=== PATIENT | male | born 1995 | race Caucasian/White ===

== ENCOUNTER 2023-05-06 20:23 | Emergency (ER) | payer BC ==
[2023-05-07] MEDS ORDERED: Doxycycline 100 MG Cap PO ONE (00:18)
[2023-05-07] MEDS ORDERED: Cephalexin 500 MG Cap PO ONE (00:18)
== END 2023-05-07 00:42 | disposition home or self-care (01) ==
LOC: MW.ED 20:23
DX: S70.362A Insect bite (nonvenomous), left thigh, initial encounter (principal); L03.116 Cellulitis of left lower limb; W57.XXXA Bitten or stung by nonvenomous insect and other nonvenomous arthropods, initial encounter
CPT/HCPCS: 99282; A9270

== ENCOUNTER 2023-06-12 03:15 | Emergency (ER) | payer OTHER, BC | END 2023-06-12 04:26 | disposition home or self-care (01) | LOC: MW.ED 03:15 | DX: T59.91XA Toxic effect of unspecified gases, fumes and vapors, accidental (unintentional), initial encounter (principal); Y99.0 Civilian activity done for income or pay | CPT/HCPCS: 82375; 93005; 99284 ==